=== PATIENT | female | born 1965 | race Caucasian/White ===

== ENCOUNTER 2017-10-19 12:50 | Emergency (ER) | payer BC ==
[2017-10-19] MEDS: KETOROLAC 30 MG INJ IM (15:18)
== END 2017-10-19 16:03 | disposition home or self-care (01) ==
LOC: FTE 12:50
DX: G89.18 Other acute postprocedural pain (principal); L90.5 Scar conditions and fibrosis of skin; R10.9 Unspecified abdominal pain
CPT/HCPCS: 81025; 96372; 99284-25